=== PATIENT | male | born 1970 | race Caucasian/White ===

== ENCOUNTER 2024-03-09 06:13 | Inpatient (IN) | payer MEDICARE, OTHER ==
[~2024-03-09] VITALS: Ht 175.3 cm; Wt 97.1 kg
[2024-03-09] MEDS ORDERED: POTASSIUM CHLORIDE 10 MEQ/50 ML PREMIXED IVPB FOR PERIPHERAL LINE IV ONE (06:14)
[2024-03-09] MEDS ORDERED: ANESTHESIA TRAY IN PYXIS 1 EA TRAY MC ONE (06:32)
[2024-03-09] MEDS ORDERED: LIDOCAINE 2%-EPI 1:100,000 30 ML VIAL ONE (06:32)
[2024-03-09] MEDS ORDERED: dexaMETHasone SOD PHOSPHATE 2 ML ONE (06:32)
[2024-03-09] MEDS ORDERED: VANCOMYCIN 1 GM VIAL ONE (06:32)
[2024-03-09] MEDS ORDERED: FENTANYL PF 250MCG/5ML AMPUL ONE (07:24)
[2024-03-09] MEDS ORDERED: SUCCINYLCHOLINE CHLORIDE 20 MG/ML VIAL ONE (07:25)
[2024-03-09] MEDS ORDERED: FENTANYL PF 100MCG/2ML AMPUL ONE (12:10)
[2024-03-09] MEDS ORDERED: ONDANSETRON HCL/PF 4 MG/2 ML VIAL IV PRN (13:30)
[2024-03-09] MEDS ORDERED: ACETAMINOPHEN 325 MG TABLET PO PRN ×2 (13:30→17:30)
[2024-03-09] MEDS: HYDROMORPHONE 1 MG/1 ML DISP.SYRIN IV PRN (14:01)
[2024-03-09] MEDS ORDERED: CHOL500052 PO (14:19)
[2024-03-09] MEDS ORDERED: METH10TA2 PO (14:19)
[2024-03-09] MEDS: IV NS 0.9% 1,000 ML IV PRN (15:12)
[2024-03-09 15:18] VITALS: BP 148/92; TEMP 98.2; O2SAT 99
[2024-03-09 16:00] VITALS: BP 141/108; TEMP 98.6; O2SAT 98
[2024-03-09] MEDS: METHADONE HCL PO SCH (17:04)
[2024-03-09] MEDS ORDERED: ONDANSETRON HCL/PF 4 MG/2 ML VIAL IVP PRN (17:30)
[2024-03-09] MEDS: VANCOMYCIN 1 GM in IV D5W 250ml IV SCH (20:07)
[2024-03-09 20:18] VITALS: BP 113/82; TEMP 98.1; O2SAT 95
[2024-03-10 08:00] VITALS: BP 144/96; TEMP 98.6; O2SAT 94
== END 2024-03-10 15:12 | disposition home or self-care (01) | DRG 496 ==
LOC: DS 06:13 → MED 13:34
PROVIDERS: ADMIT Nurse Practitioner Acute Care; ATTEND Nurse Practitioner Acute Care
PROC: 0N5R0ZZ Destruction of Maxilla, Open Approach (ICD-10-PCS; principal; 2024-03-09)
PROC: 0NSR04Z Reposition Maxilla with Internal Fixation Device, Open Approach (ICD-10-PCS; 2024-03-09)
PROC: 0N5V0ZZ Destruction of Left Mandible, Open Approach (ICD-10-PCS; 2024-03-09)
PROC: 09BR0ZZ Excision of Left Maxillary Sinus, Open Approach (ICD-10-PCS; 2024-03-09)
PROC: 09BQ0ZZ Excision of Right Maxillary Sinus, Open Approach (ICD-10-PCS; 2024-03-09)
PROC: 0NSV0ZZ Reposition Left Mandible, Open Approach (ICD-10-PCS; 2024-03-09)
PROC: 0NST0ZZ Reposition Right Mandible, Open Approach (ICD-10-PCS; 2024-03-09)
PROC: 0NUV07Z Supplement Left Mandible with Autologous Tissue Substitute, Open Approach (ICD-10-PCS; 2024-03-09)
PROC: 0NUR07Z Supplement Maxilla with Autologous Tissue Substitute, Open Approach (ICD-10-PCS; 2024-03-09)
PROC: 0NUT07Z Supplement Right Mandible with Autologous Tissue Substitute, Open Approach (ICD-10-PCS; 2024-03-09)
PROC: 0NBT0ZX Excision of Right Mandible, Open Approach, Diagnostic (ICD-10-PCS; 2024-03-09)
DX: S02.40CK Maxillary fracture, right side, subsequent encounter for fracture with nonunion (principal); G82.20 Paraplegia, unspecified; M27.2 Inflammatory conditions of jaws; S02.40DK Maxillary fracture, left side, subsequent encounter for fracture with nonunion; S02.69XK Fracture of mandible of other specified site, subsequent encounter for fracture with nonunion; B91 Sequelae of poliomyelitis; I10 Essential (primary) hypertension; Z87.442 Personal history of urinary calculi; D16.4 Benign neoplasm of bones of skull and face; J32.0 Chronic maxillary sinusitis; X58.XXXD Exposure to other specified factors, subsequent encounter; F19.11 Other psychoactive substance abuse, in remission; Z79.891 Long term (current) use of opiate analgesic
CPT/HCPCS: 87081-TC; A4223; A4338; C1713; G0378; J0330; J0690; J1100; J1171; J2405; J2704; J2765; J3010; J3370; J3480; J3490; J7030; J7060; J7120